=== PATIENT | female | born 1980 | race Caucasian/White ===

== ENCOUNTER 2017-04-14 16:33 | Inpatient (IN) | payer SELFPAY ==
[2017-04-14] MEDS ORDERED: ACETAMINOPHEN 325 MG TABLET PO ONE (18:08)
--- NOTE | 2017-04-14 18:11 | ER Document Report ---
ED Medical Screen (RME) - General Chief Complaint: Flu Symptoms Stated Complaint: WEALMESS. BACK/SIDE PAIN Time Seen by Provider: 04/14/17 18:07 Information source: Patient Notes: 36-year-old female with the onset yesterday runny nose, congestion, sore throat , cough, fever, body aches, without vomiting or diarrhea. She denies any dysuria, chest pain, headache or neck stiffness. TRAVEL OUTSIDE OF THE [place] IN LAST 30 DAYS: No - Related Data Allergies/Adverse Reactions: amoxicillin Allergy (Verified 04/14/17 16:36) Past Medical History - Social History Chew tobacco use (# tins/day): No Frequency of alcohol use: None Drug Abuse: None - Past Medical History Cardiac Medical History: Denies: Hx Coronary Artery Disease, Hx Hypertension Pulmonary Medical History: Denies: Hx Asthma Endocrine Medical History: Denies: Hx Diabetes Mellitus Type 1, Hx Diabetes Mellitus Type 2 Renal/ Medical History: Denies: Hx Peritoneal Dialysis Past Surgical History: Reports: Hx Tubal Ligation - Immunizations Immunizations up to date: Yes Hx Diphtheria, Pertussis, Tetanus Vaccination: No Physical Exam - Vital signs Vitals: Temp Pulse Resp BP Pulse Ox 103.1 F H 116 H 20 105/63 97 04/14/17 16:47 04/14/17 16:47 04/14/17 16:47 04/14/17 16:47 04/14/17 16:47 Course - Vital Signs Vital signs: Temp Pulse Resp BP Pulse Ox 103.1 F H 116 H 20 105/63 97 04/14/17 16:47 04/14/17 16:47 04/14/17 16:47 04/14/17 16:47 04/14/17 16:47
[2017-04-14] MEDS ORDERED: ONDANSETRON 4 MG TAB.RAPDIS PO ONE (18:12)
[2017-04-14 18:51] LABS: A TYPE INFLUENZA AG NEGATIVE (NEGATIVE); B INFLUENZA AG NEGATIVE (NEGATIVE)
[2017-04-14] MEDS ORDERED: NORMAL SALINE 1000 ML 1,000 ML IV ONE (19:26)
--- NOTE | 2017-04-14 20:48 | RADIOLOGY REPORT (SQ) ---
EXAM DESCRIPTION: CHEST PA/LAT COMPLETED DATE/TIME: 04/14/2017 8:29 pm REASON FOR STUDY: cough and fever COMPARISON: 10/21/2014 EXAM PARAMETERS: NUMBER OF VIEWS: two views TECHNIQUE: Digital Frontal and Lateral radiographic views of the chest acquired. RADIATION DOSE: NA LIMITATIONS: none FINDINGS: LUNGS AND PLEURA: No opacities, masses or pneumothorax. No pleural effusion. MEDIASTINUM AND HILAR STRUCTURES: No masses or contour abnormalities. HEART AND VASCULAR STRUCTURES: Heart normal size. No evidence for failure. BONES: No acute findings. HARDWARE: None in the chest. OTHER: No other significant finding. IMPRESSION: NO SIGNIFICANT RADIOGRAPHIC FINDING IN THE CHEST. TECHNICAL DOCUMENTATION: JOB ID: [id number] [employer]- All Rights Reserved
[2017-04-14 21:12] LABS: ABSOLUTE LYMPHOCYTES (AUTO) 0.9 10^3/uL (0.5-4.7); ABSOLUTE MONOCYTES (AUTO) 0.4 10^3/uL (0.1-1.4); ABSOLUTE NEUT (AUTO) 4.8 10^3/uL (1.7-8.2); BASOPHILS % (AUTO) 0.2 % (0-2); HEMATOCRIT 36.5 % (36.0-47.0); HEMOGLOBIN 12.2 g/dL (12.0-15.5); MEAN CORPUSCULAR HEMOGLOBIN 29.3 pg (27.0-33.4); MEAN CORPUSCULAR HGB CONC 33.6 g/dL (32.0-36.0); MEAN CORPUSCULAR VOLUME 87 fl (80-97); MONOCYTES % (AUTO) 7.3 % (3-13); PLATELET COUNT 230 10^3/uL (150-450); RED BLOOD COUNT 4.18 10^6/uL (3.72-5.28); RED CELL DISTRIBUTION WIDTH 13.3 % (11.5-14.0); SEGMENTED NEUTROPHILS % (AUTO) 78.5 % (42-78); TOTAL CELLS COUNTED % (AUTO) 100 %; WHITE BLOOD COUNT 6.1 10^3/uL (4.0-10.5)
--- NOTE | 2017-04-14 21:18 | ER Document Report ---
ED General - General Mode of Arrival: Ambulatory Information source: Patient TRAVEL OUTSIDE OF THE [place] IN LAST 30 DAYS: No - HPI Patient complains to provider of: Weakness and flu like symptoms Associated symptoms: Other - see notes above <PAXTON LIZAMA - Last Filed: 04/14/17 23:31> <GERARDOCARLOS ANN - Last Filed: 04/15/17 01:02> - General Chief Complaint: Flu Symptoms Stated Complaint: WEAKNESS. BACK/SIDE PAIN Time Seen by Provider: 04/14/17 18:07 Notes: 36 year old female with no known medical history presents to the ED complaining of weakness and flu like symptoms. Patient complains of fever, cough, congestion , sore throat, and right flank pain. Patient denies dysuria or shortness of breath. Patient reports that her back pain started after her flu like symptoms. (PAXTON LIZAMA) - Related Data Allergies/Adverse Reactions: amoxicillin Allergy (Verified 04/14/17 16:36) Past Medical History - General Information source: Patient - Social History Smoking Status: Former Smoker Chew tobacco use (# tins/day): No Frequency of alcohol use: None Drug Abuse: None Family History: None, Reviewed & Not Pertinent Patient has suicidal ideation: No Patient has homicidal ideation: No - Past Medical History Cardiac Medical History: Denies: Hx Coronary Artery Disease, Hx Hypertension Pulmonary Medical History: Denies: Hx Asthma Endocrine Medical History: Denies: Hx Diabetes Mellitus Type 1, Hx Diabetes Mellitus Type 2 Renal/ Medical History: Denies: Hx Peritoneal Dialysis Past Surgical History: Reports: Hx Tubal Ligation - Immunizations Immunizations up to date: Yes Hx Diphtheria, Pertussis, Tetanus Vaccination: No <PAXTON LIZAMA - Last Filed: 04/14/17 23:31> Review of Systems - Review of Systems Constitutional: See HPI, Fever EENT: No symptoms reported, Nose congestion, Throat pain Cardiovascular: No symptoms reported Respiratory: See HPI, Cough. denies: Short of breath Gastrointestinal: No symptoms reported Genitourinary: See HPI, Flank pain - right. denies: Burning, Dysuria Female Genitourinary: No symptoms reported Musculoskeletal: No symptoms reported Skin: No symptoms reported Hematologic/Lymphatic: No symptoms reported Neurological/Psychological: No symptoms reported -: Yes All other systems reviewed and negative <PAXTON LIZAMA - Last Filed: 04/14/17 23:31> Physical Exam - Vital signs Interpretation: Hypotensive, Tachycardic, Febrile - General General appearance: Alert In distress: None - HEENT Head: Normocephalic, Atraumatic Eyes: Normal Extraocular movements intact: Yes Pupils: PERRL Nasal: Other - nasal congestion - Respiratory Respiratory status: No respiratory distress Breath sounds: Normal - Cardiovascular Rhythm: Regular, Tachycardia Heart sounds: Normal auscultation - Abdominal Inspection: Normal - Back Back: CVA tenderness - right. No: Normal - Extremities General upper extremity: Normal inspection, Normal ROM General lower extremity: Normal inspection, Normal ROM - Neurological Neuro grossly intact: Yes Cognition: Normal Orientation: AAOx4 [place] Coma Scale Eye Opening: Spontaneous [place] Coma Scale Verbal: Oriented [place] Coma Scale Motor: Obeys Commands [place] Coma Scale Total: 15 - Psychological Associated symptoms: Normal affect, Normal mood - Skin Skin Temperature: Warm Skin Moisture: Dry Skin Color: Normal <DLPAXTON - Last Filed: 04/14/17 23:31> - Vital signs Vitals: Temp Pulse Resp BP Pulse Ox 103.1 F H 116 H 20 105/63 97 04/14/17 16:47 04/14/17 16:47 04/14/17 16:47 04/14/17 16:47 04/14/17 16:47 Course - Laboratory Result Diagrams: 04/14/17 20:41 04/14/17 20:41 <LIZAMAPAXTON - Last Filed: 04/14/17 23:31> - Laboratory Result Diagrams: 04/14/17 20:41 04/14/17 20:41 - Diagnostic Test Radiology reviewed: Reports reviewed <CARLOS CARRILLO - Last Filed: 04/15/17 01:02> - Re-evaluation Re-evalutation: 04/14 Patient is a 28-year-old female who comes in with a fever of 103, tachycardia and hypotension. Flu swab was negative although patient does have upper respiratory symptoms. More concerning however is her flank pain, CVA tenderness , and bacteria in her urine. No acute findings on CT. Patient was given ceftriaxone. Discussed with the hospitalist service. Cultures have been sent. Patient is agreeable to this plan. (CARLOS CARRILLO) - Vital Signs Vital signs: Temp Pulse Resp BP Pulse Ox 99.2 F 98 20 100/56 L 96 04/14/17 23:11 04/14/17 23:11 04/14/17 16:47 04/14/17 23:11 04/14/17 23:11 - Laboratory Laboratory results interpreted by me: 04/14/17 04/14/17 04/14/17 20:41 20:41 21:45 Seg Neutrophils % 78.5 H Glucose 114 H Urine Blood LARGE H Critical Care Note - Critical Care Note Total time excluding time spent on procedures (mins): 35 - Fever, tachycardia, hypotension, evaluation of possible pyelonephritis, multiple re-evaluations, coordination of admission <CARLOS CARRILLO - Last Filed: 04/15/17 01:02> Discharge <PAXTON LIZAMA - Last Filed: 04/14/17 23:31> - Discharge Admitting Provider: [facility]ist [facility] Admitted: Telemetry <CARLOS CARRILLO - Last Filed: 04/15/17 01:02> - Discharge Clinical Impression: Pyelonephritis Condition: Stable Disposition: ADMITTED INPATIENT Scribe Attestation: 04/15/17 01:02 I personally performed the services described in the documentation, reviewed and edited the documentation which was dictated to the scribe in my presence, and it accurately records my words and actions. (CARLOS CARRILLO) Scribe Documentation - Scribe Written by Ninaibe:: Jon Rodriges, 04/14/2017 2210 acting as scribe for :: Gerardo <PAXTON LIZAMA - Last Filed: 04/14/17 23:31>
[2017-04-14 21:54] LABS: ANION GAP 14 (5-19); BLOOD UREA NITROGEN 16 mg/dL (7-20); CALCIUM 9.1 mg/dL (8.4-10.2); CARBON DIOXIDE 23 mmol/L (22-30); CHLORIDE 102 mmol/L (98-107); GLUCOSE 114 mg/dL (75-110); SODIUM 138.7 mmol/L (137-145)
[2017-04-14 22:12] LABS: AMORPHOUS SEDIMENT,URINE TRACE /HPF; APPEARANCE,URINE SLIGHTLY-CLOUDY; BILIRUBIN,URINE NEGATIVE (NEGATIVE); COLOR,URINE YELLOW; GLUCOSE, URINE NEGATIVE (NEGATIVE); KETONES,URINE NEGATIVE (NEGATIVE); LEUKOCYTE ESTERASE,URINE NEGATIVE (NEGATIVE); NITRITE,URINE NEGATIVE (NEGATIVE); PROTEIN,URINE NEGATIVE (NEGATIVE); URINE SPECIFIC GRAVITY 1.006; UROBILINOGEN,URINE NEGATIVE mg/dL (<2.0)
[2017-04-14] MEDS ORDERED: CEFTRIAXONE 1 GM/D5W RTU 1 GM/50 ML RTUPB IV ONE (22:14)
--- NOTE | 2017-04-15 00:07 | RADIOLOGY REPORT (SQ) ---
EXAM DESCRIPTION: CT ABDOMEN AND PELVIS WITHOUT CONTRAST CLINICAL HISTORY: Diffuse abdominal pain COMPARISON: None Available. TECHNIQUE: CT of the abdomen and pelvis without IV contrast. FINDINGS: Abdomen: The liver has normal size and density. No calcified gallstones. The spleen, pancreas, and adrenal glands are unremarkable. The kidneys have normal size and contour without evidence of hydronephrosis. No obstructing ureteral calculi. The aorta and IVC have normal caliber and position. No free intraperitoneal air. Hazy appearance of the left abdominal mesentery. The stomach and duodenum have normal course. Pelvis: Prior tubal ligation. Uterus is not enlarged. Urinary bladder is unremarkable. No free pelvic fluid or lymphadenopathy. No dilated loops of large or small bowel. Normal appendix. The visualized lung bases are clear. No destructive bone lesions identified. DLP: 558.4 mGy-cm IMPRESSION: 1. Hazy appearance of the left abdominal mesentery. This can be seen with nonspecific mesenteric inflammation. Most likely differential considerations in this patient include gastroenteritis or pancreatitis. Follow-up CT of the abdomen in 3-6 months to confirm resolution and exclude less likely causes of mesenteric inflammation. This exam was performed according to our departmental dose-optimization program, which includes automated exposure control, adjustment of the mA and/or kV according to patient size and/or use of iterative reconstruction technique.
[2017-04-15] MEDS ORDERED: NORMAL SALINE 1000 ML 1,000 ML IV ONE ×2 (00:08→03:41)
[2017-04-15] MEDS ORDERED: IBUPROFEN 800 MG TABLET PO ONE (00:13)
[2017-04-15 01:06] LABS: CREATINE KINASE 50 U/L (30-135); LIPASE 225.8 U/L (23-300)
[2017-04-15 01:11] LABS: URINE AMPHETAMINES SCREEN NEGATIVE; URINE BARBITURATES SCREEN NEGATIVE; URINE BENZODIAZEPINES SCREEN NEGATIVE; URINE COCAINE SCREEN NEGATIVE; URINE MARIJUANA (THC) SCREEN NEGATIVE; URINE METHADONE SCREEN NEGATIVE; URINE PHENCYCLIDINE SCREEN NEGATIVE
[2017-04-15] MEDS ORDERED: NORMAL SALINE 1000 ML 1,000 ML IV PRN (02:02)
[2017-04-15] MEDS ORDERED: ALBUTEROL SULFATE HFA (90 MCG/PUFF) 200 PUFF/8.5 GM MDI IH PRN (02:02)
[2017-04-15] MEDS ORDERED: ACETAMINOPHEN 325 MG TABLET PO PRN (02:02)
[2017-04-15] MEDS ORDERED: GUAIFENESIN SYRP 200 MG/10 ML UDC PO PRN (02:02)
[2017-04-15] MEDS ORDERED: CEFTRIAXONE 1 GM/D5W RTU 1 GM/50 ML RTUPB IV ONE (03:00)
[2017-04-15] MEDS ORDERED: AZITHROMYCIN 500 MG in DEXTROSE 5%-WATER 250 ML IV ONE (03:00)
[2017-04-15] MEDS ORDERED: INFLUENZA ADLT QUAD (36MOS+) 2017-18 VAC 0.5 ML SYR IM PRN (03:29)
[2017-04-15] MEDS ORDERED: AZITHROMYCIN INJ 500 MG VIAL IV ONE (03:45)
[2017-04-15] MEDS ORDERED: KETOROLAC TROMETHAMINE INJ/PF 30 MG/1 ML SDV IV PRN (03:50)
[2017-04-15] MEDS ORDERED: TRAMADOL HCL 50 MG TABLET PO PRN (03:51)
[2017-04-15] MEDS ORDERED: BISACODYL 5 MG TABEC PO ONE (03:56)
--- NOTE | 2017-04-15 03:59 | PDOC H&P ---
History of Present Illness Admission Date/PCP: 04/15/17 01:15 No PCP History of Present Illness: KARON CHOUDHARY is a 36 year old female with no past medical history who presents to the emergency department with complaints of flulike symptoms and weakness. Patient reports that several weeks ago she was diagnosed with a URI and [place] and given cough syrup to help her sleep. She reports she was given no antibiotics or steroids at that time. Since that time patient has continued to have a cough productive of a white clear sputum, fevers and chills and weakness. Patient also notes the onset of right-sided back and side pain over the last several days. She reports that she often has back pain though. She does complain of nausea but no vomiting. She does ache all over and complains of general myalgias. Patient complains of upper respiratory symptoms including fever, cough, congestion, sore throat. Patient is referred to the hospitalist service for fever. Past Medical History Medical History: None Cardiac Medical History: Denies: Coronary Artery Disease, Hypertension Pulmonary Medical History: Denies: Asthma Endocrine Medical History: Denies: Diabetes Mellitus Type 1, Diabetes Mellitus Type 2 Past Surgical History Past Surgical History: Reports: Tubal Ligation Social History Smoking Status: Former Smoker Frequency of Alcohol Use: None Hx Recreational Drug Use: No Hx Prescription Drug Abuse: No - Advance Directive Resuscitation Status: Full Code Surrogate healthcare decision maker:: maria luisa Hdz Family History Family History: DM, Hypertension Parental Family History Reviewed: Yes Children Family History Reviewed: Yes Sibling(s) Family History Reviewed.: Yes Medication/Allergy Home Medications: Promethazine HCl [Phenergan 25 mg Tablet] 25 mg PO Q6H PRN #15 tablet 04/24/13 Hydrocodone/Acetaminophen [[place] 5-325 Tablet] 1 each PO Q4 PRN #8 tablet Amoxicillin Trihydrate [Amoxil 875 mg Tablet] 1 tab PO BID #20 tablet 04/07/14 Ibuprofen 800 mg PO Q8HP PRN #30 tablet 04/07/14 Butalb/Acetaminophen/Caffeine [Fioricet 50-300-40 mg Capsule] 1 cap PO Q4 PRN # 30 cap 10/21/14 Ibuprofen [Motrin 600 mg Tablet] 600 mg PO Q6 PRN #60 tablet 10/21/14 Metoclopramide HCl [Reglan] 10 mg PO Q8 #30 tablet 10/21/14 Methocarbamol [Robaxin 750 mg Tablet] 750 mg PO ASDIR PRN #40 tablet 08/01/15 Oxycodone HCl/Acetaminophen [Percocet 5-325 mg Tablet] 1 - 2 tab PO ASDIR PRN # 25 tablet 01/16/16 Allergies/Adverse Reactions: amoxicillin Allergy (Verified 04/14/17 16:36) Review of Systems Constitutional: PRESENT: anorexia, chills, fatigue, fever(s). ABSENT: headache( s), weight gain, weight loss Eyes: ABSENT: visual disturbances Ears: ABSENT: hearing changes Cardiovascular: ABSENT: chest pain, dyspnea on exertion, edema, orthropnea, palpitations Respiratory: PRESENT: cough, sputum. ABSENT: hemoptysis Gastrointestinal: PRESENT: nausea. ABSENT: abdominal pain, constipation, diarrhea, hematemesis, hematochezia, melena, vomiting Genitourinary: ABSENT: difficulty urinating, dysuria, hematuria, nocturia Musculoskeletal: ABSENT: joint swelling Integumentary: ABSENT: rash, wounds Neurological: ABSENT: abnormal gait, abnormal speech, confusion, dizziness, focal weakness, syncope Psychiatric: ABSENT: anxiety, depression, homidical ideation, suicidal ideation Endocrine: ABSENT: cold intolerance, heat intolerance, polydipsia, polyuria Hematologic/Lymphatic: ABSENT: easy bleeding, easy bruising Physical Exam Vital Signs: Temp Pulse Resp BP Pulse Ox 99.2 F 98 20 100/56 L 96 04/14/17 23:11 04/14/17 23:11 04/14/17 16:47 04/14/17 23:11 04/14/17 23:11 General appearance: PRESENT: mild distress, obese, well-developed, well- nourished Head exam: PRESENT: atraumatic, normocephalic Eye exam: PRESENT: conjunctiva pink, EOMI, PERRLA. ABSENT: conjunctival injection, scleral icterus Ear exam: PRESENT: normal external ear exam Mouth exam: PRESENT: dry mucosa, tongue midline Neck exam: PRESENT: lymphadenopathy. ABSENT: JVD, thyromegaly, tracheal deviation Respiratory exam: PRESENT: clear to auscultation og, other - Egophony right upper lobe. ABSENT: rales, rhonchi, wheezes Cardiovascular exam: PRESENT: RRR, +S1, +S2. ABSENT: diastolic murmur, rubs, systolic murmur Pulses: PRESENT: normal dorsalis pedis pul Vascular exam: PRESENT: normal capillary refill GI/Abdominal exam: PRESENT: normal bowel sounds, soft. ABSENT: distended, guarding, mass, organolmegaly, rebound, tenderness Rectal exam: PRESENT: deferred Extremities exam: PRESENT: full ROM. ABSENT: calf tenderness, clubbing, pedal edema Neurological exam: PRESENT: alert, awake, oriented to person, oriented to place , oriented to time, oriented to situation, CN II-XII grossly intact. ABSENT: motor sensory deficit Psychiatric exam: PRESENT: appropriate affect, normal mood. ABSENT: homicidal ideation, suicidal ideation Skin exam: PRESENT: dry, intact, warm. ABSENT: cyanosis, rash Results Laboratory Results: 04/14/17 04/14/17 04/14/17 18:08 18:08 20:41 WBC 6.1 Hgb 12.2 Hct 36.5 Plt Count 230 Sodium Potassium Chloride Carbon Dioxide Anion Gap BUN Creatinine Glucose Calcium Creatine Kinase Lipase Urine Blood Urine WBC (Auto) Urine RBC (Auto) Urine Bacteria (Auto) Squamous Epi Cells Auto Amorphous Sediment Auto Urine Mucus (Auto) Urine Opiates Screen Influenza A (Rapid) NEGATIVE Influenza B (Rapid) NEGATIVE Group A Strep Rapid NEGATIVE 04/14/17 04/14/17 04/14/17 20:41 20:41 21:45 WBC Hgb Hct Plt Count Sodium 138.7 Potassium 4.0 Chloride 102 Carbon Dioxide 23 Anion Gap 14 BUN 16 Creatinine 0.64 Glucose 114 H Calcium 9.1 Creatine Kinase 50 Lipase 225.8 Urine Blood LARGE H Urine WBC (Auto) 1 Urine RBC (Auto) 3 Urine Bacteria (Auto) 2+ Squamous Epi Cells Auto 4 Amorphous Sediment Auto TRACE Urine Mucus (Auto) RARE Urine Opiates Screen Influenza A (Rapid) Influenza B (Rapid) Group A Strep Rapid 04/14/17 21:45 WBC Hgb Hct Plt Count Sodium Potassium Chloride Carbon Dioxide Anion Gap BUN Creatinine Glucose Calcium Creatine Kinase Lipase Urine Blood Urine WBC (Auto) Urine RBC (Auto) Urine Bacteria (Auto) Squamous Epi Cells Auto Amorphous Sediment Auto Urine Mucus (Auto) Urine Opiates Screen UNCONFIRMED POSITIVE Influenza A (Rapid) Influenza B (Rapid) Group A Strep Rapid Impressions: Chest X-Ray 04/14/17 19:26 IMPRESSION: NO SIGNIFICANT RADIOGRAPHIC FINDING IN THE CHEST. Limited or Localized CT 04/14/17 23:39 IMPRESSION: 1. Hazy appearance of the left abdominal mesentery. This can be seen with nonspecific mesenteric inflammation. Most likely differential considerations in this patient include gastroenteritis or pancreatitis. Follow-up CT of the abdomen in 3-6 months to confirm resolution and exclude less likely causes of mesenteric inflammation. This exam was performed according to our departmental dose-optimization program, which includes automated exposure control, adjustment of the mA and/or kV according to patient size and/or use of iterative reconstruction technique. Assessment & Plan - Diagnosis (1) Fever Qualifiers: Encounter type: initial encounter Is this a current diagnosis for this admission?: Yes Plan: Patient with fever of 103 on admission. Suspect pneumonia at this time due to patient's egophony and copious upper respiratory tract symptoms. Will repeat her chest x-ray after rehydration. Start patient empirically on Rocephin and azithromycin. (2) Pneumonia Qualifiers: Pneumonia type: due to unspecified organism Laterality: right Lung location: upper lobe of lung Qualified Code(s): J18.1 - Lobar pneumonia, unspecified organism Is this a current diagnosis for this admission?: Yes Plan: Place patient on Rocephin and azithromycin for community-acquired pneumonia Albuterol as needed Sputum culture Blood cultures (3) Constipation Qualifiers: Constipation type: unspecified constipation type Qualified Code(s): K59.00 - Constipation, unspecified Is this a current diagnosis for this admission?: Yes Plan: Patient had a mildly abnormal CAT scan which upon my own review does reveal a copious amount of stool. Will give Dulcolax and Colace. (4) UTI (urinary tract infection) Qualifiers: Urinary tract infection type: site unspecified Hematuria presence: without hematuria Qualified Code(s): N39.0 - Urinary tract infection, site not specified Is this a current diagnosis for this admission?: Yes Plan: Patient possibly has a UTI and ER physician was concerned for pyelonephritis. Patient's clinical picture does not seem to fit this diagnosis, but Rocephin will cover for both of these conditions. Obtain repeat UA. Patient's UA appeared to be contaminated by squamous epithelial cells. Pending culture. - Time Time Spent: 30 to 50 Minutes Medications reviewed and adjusted accordingly: Yes Anticipated discharge: Home - Inpatient Certification Based on my medical assessment, after consideration of the patient's comorbidities, presenting symptoms, or acuity I expect that the services needed warrant INPATIENT care.: Yes I certify that my determination is in accordance with my understanding of Medicare's requirements for reasonable and necessary INPATIENT services [42 CFR 412.3e].: Yes Medical Necessity: Need For IV Fluids, Need for IV Antibiotics Post Hospital Care: D/C Technologist Development Documentation
[2017-04-15 06:02] LABS: APPEARANCE,URINE SLIGHTLY-CLOUDY; BILIRUBIN,URINE NEGATIVE (NEGATIVE); COLOR,URINE YELLOW; GLUCOSE, URINE NEGATIVE (NEGATIVE); KETONES,URINE NEGATIVE (NEGATIVE); LEUKOCYTE ESTERASE,URINE NEGATIVE (NEGATIVE); NITRITE,URINE NEGATIVE (NEGATIVE); PROTEIN,URINE NEGATIVE (NEGATIVE); URINE SPECIFIC GRAVITY 1.008; UROBILINOGEN,URINE NEGATIVE mg/dL (<2.0)
[2017-04-15] MEDS: GUAIFENESIN 600 MG TABLET.SA PO SCH ×2 (10:13→21:46)
[2017-04-15] MEDS: ENOXAPARIN SODIUM INJ 40 MG/0.4 ML DISP.SYRIN SUBCUT SCH (10:13)
[2017-04-15] MEDS: CEFTRIAXONE 1 GM/D5W RTU 1 GM/50 ML RTUPB IV SCH (10:13)
[2017-04-15] MEDS: FAMOTIDINE 20 MG TABLET PO SCH ×2 (10:13→21:46)
[2017-04-15] MEDS: DOCUSATE SODIUM 100 MG CAPSULE PO SCH ×2 (10:13→19:28)
[2017-04-15] MEDS: AZITHROMYCIN 500 MG in DEXTROSE 5%-WATER 250 ML IV SCH (10:14)
--- NOTE | 2017-04-15 14:29 | PDOC PROGRESS REPORT ---
Subjective Progress Note for:: 04/15/17 Subjective:: The patient is a 36-year-old female admitted with fever. Her history started about 2 weeks ago with nonspecific symptoms. She has had an ongoing runny nose. She has had a cough. She has had muscle aches and pains. She was admitted with a presumptive diagnosis of pyelonephritis but does not appear to have clinical evidence of pyelonephritis. Also, she has coarse rales in the left upper lobe of the lung field posteriorly but no evidence of an infiltrate on radiograph. She states that she is feeling slightly better when compared to yesterday. Reason For Visit: PNEUMONIA, FEVER Physical Exam Vital Signs: Temp Pulse Resp BP Pulse Ox 98.3 F 70 18 99/56 L 99 04/15/17 11:31 04/15/17 11:31 04/15/17 11:31 04/15/17 11:31 04/15/17 14:17 Pulse Oximeter Continuous Start: 04/15/17 02: 02 Freq: RTQ4 Status: Active Document 04/15/17 14:17 CMI (Rec: 04/15/17 14:17 CMI [email or web address]) Pulse Oximetry Assessment Oxygen Saturation (92-100) 99 Oxygen Delivery Method Room Air Fraction of Inspired Oxygen (FIO2) 21 Equipment Usage Equipment in Use Continuous SpO2 Machine # 8 Intake & Output 04/14/17 04/15/17 04/16/17 06:59 06:59 06:59 Intake Total 2089 Output Total 500 Balance 1589 Weight 81.9 kg Additional comments: The patient is healthy appearing. She does not appear to be toxic or in distress. Her facial appearance is unremarkable. Her oropharynx is benign without any exudates or pustules. Her lungs are clear with the exception of the posterior lung rodriguez in the left upper lung zone. She has coarse rales in this area. Her cardiac exam is noted to be regular without murmurs, gallops or rubs. The abdomen is benign. The lower extremities do not demonstrate edema. The skin is warm, dry and intact without lesions or rashes. Results Laboratory Results: 04/15/17 05:20 Urine Color YELLOW Urine Appearance SLIGHTLY-CLOUDY Urine pH 6.0 Ur Specific [place] 1.008 Urine Protein NEGATIVE Urine Glucose (UA) NEGATIVE Urine Ketones NEGATIVE Urine Blood LARGE H Urine Nitrite NEGATIVE Ur Leukocyte Esterase NEGATIVE Urine WBC (Auto) 3 Urine RBC (Auto) 4 Impressions: Chest X-Ray 04/14/17 19:26 IMPRESSION: NO SIGNIFICANT RADIOGRAPHIC FINDING IN THE CHEST. Limited or Localized CT 04/14/17 23:39 IMPRESSION: 1. Hazy appearance of the left abdominal mesentery. This can be seen with nonspecific mesenteric inflammation. Most likely differential considerations in this patient include gastroenteritis or pancreatitis. Follow-up CT of the abdomen in 3-6 months to confirm resolution and exclude less likely causes of mesenteric inflammation. This exam was performed according to our departmental dose-optimization program, which includes automated exposure control, adjustment of the mA and/or kV according to patient size and/or use of iterative reconstruction technique. Assessment & Plan - Diagnosis (1) Constipation Qualifiers: Constipation type: unspecified constipation type Qualified Code(s): K59.00 - Constipation, unspecified Is this a current diagnosis for this admission?: Yes (2) Fever Qualifiers: Encounter type: initial encounter Is this a current diagnosis for this admission?: Yes (3) Pneumonia Qualifiers: Pneumonia type: due to unspecified organism Laterality: right Lung location: upper lobe of lung Qualified Code(s): J18.1 - Lobar pneumonia, unspecified organism Is this a current diagnosis for this admission?: Yes (5) UTI (urinary tract infection) Qualifiers: Urinary tract infection type: site unspecified Hematuria presence: without hematuria Qualified Code(s): N39.0 - Urinary tract infection, site not specified Is this a current diagnosis for this admission?: Yes - Time Time Spent with patient: 15-24 minutes - Inpatient Certification Medical Necessity: Need for IV Antibiotics, Risk of Complication if Not Cared For in Hospital - Plan Summary Plan Summary: Patient presents with a constellation of symptoms that are most suggestive of a viral illness. Her illness began 2 weeks ago. She did have rapid influenza testing which was negative. At this point time I think it is prudent to continue antibiotics for both community-acquired pneumonia and a UTI. There is been a question about mesenteric inflammation and pancreatitis. However, she does not have any clinical symptoms to suggest pancreatitis. She otherwise looks well. Hopefully, she will be able to eat and drink and we can discharge her in the next 24-48 hours.
[2017-04-16 04:51] LABS: ABSOLUTE EOSINOPHILS # (AUTO) 0.1 10^3/uL (0.0-0.6); ABSOLUTE LYMPHOCYTES (AUTO) 1.7 10^3/uL (0.5-4.7); ABSOLUTE MONOCYTES (AUTO) 0.5 10^3/uL (0.1-1.4); ABSOLUTE NEUT (AUTO) 2.9 10^3/uL (1.7-8.2); BASOPHILS % (AUTO) 0.3 % (0-2); EOSINOPHILS % (AUTO) 1.1 % (0-6); HEMATOCRIT 33.2 % (36.0-47.0); HEMOGLOBIN 11.1 g/dL (12.0-15.5); MEAN CORPUSCULAR HEMOGLOBIN 29.2 pg (27.0-33.4); MEAN CORPUSCULAR HGB CONC 33.4 g/dL (32.0-36.0); MEAN CORPUSCULAR VOLUME 88 fl (80-97); MONOCYTES % (AUTO) 8.8 % (3-13); PLATELET COUNT 197 10^3/uL (150-450); RED CELL DISTRIBUTION WIDTH 13.9 % (11.5-14.0); SEGMENTED NEUTROPHILS % (AUTO) 55.8 % (42-78); TOTAL CELLS COUNTED % (AUTO) 100 %; WHITE BLOOD COUNT 5.1 10^3/uL (4.0-10.5)
[2017-04-16 05:04] LABS: ANION GAP 9 (5-19); BLOOD UREA NITROGEN 7 mg/dL (7-20); CALCIUM 8.3 mg/dL (8.4-10.2); CARBON DIOXIDE 25 mmol/L (22-30); CHLORIDE 109 mmol/L (98-107); GLUCOSE 83 mg/dL (75-110); POTASSIUM 3.8 mmol/L (3.6-5.0); SODIUM 143.3 mmol/L (137-145)
[2017-04-16] MEDS: DOCUSATE SODIUM 100 MG CAPSULE PO SCH (09:19)
[2017-04-16] MEDS: AZITHROMYCIN 500 MG in DEXTROSE 5%-WATER 250 ML IV SCH (09:39)
[2017-04-16] MEDS: FAMOTIDINE 20 MG TABLET PO SCH (09:39)
[2017-04-16] MEDS: CEFTRIAXONE 1 GM/D5W RTU 1 GM/50 ML RTUPB IV SCH (09:39)
[2017-04-16] MEDS: ENOXAPARIN SODIUM INJ 40 MG/0.4 ML DISP.SYRIN SUBCUT SCH (09:39)
[2017-04-16] MEDS: GUAIFENESIN 600 MG TABLET.SA PO SCH (09:39)
--- NOTE | 2017-04-16 12:25 | PDOC DISCHARGE SUMMARY ---
General - Admit/Disc Date/PCP Admission Date/Primary Care Provider: 04/15/17 01:15 Discharge Date: 04/16/17 - Discharge Diagnosis (1) Constipation Is this a current diagnosis for this admission?: Yes (2) Fever Is this a current diagnosis for this admission?: Yes (3) Pneumonia Is this a current diagnosis for this admission?: No (4) Pyelonephritis Is this a current diagnosis for this admission?: No (5) UTI (urinary tract infection) Is this a current diagnosis for this admission?: No (6) Bronchitis Is this a current diagnosis for this admission?: Yes (7) Gastroenteritis Is this a current diagnosis for this admission?: Yes - Additional Information Resuscitation Status: Full Code Discharge Diet: Regular Discharge Activity: Activity As Tolerated, Balance Activity w/Rest Prescriptions: Azithromycin 250 mg PO DAILY #4 tablet Home Medications: Azithromycin 250 mg PO DAILY #4 tablet 04/16/17 History of Present Illness History of Present Illness: KARON CHOUDHARY is a 36 year old female with no past medical history who presents to the emergency department with complaints of flulike symptoms and weakness. Patient reports that several weeks ago she was diagnosed with a URI and [place] and given cough syrup to help her sleep. She reports she was given no antibiotics or steroids at that time. Since that time patient has continued to have a cough productive of a white clear sputum, fevers and chills and weakness. Patient also notes the onset of right-sided back and side pain over the last several days. She reports that she often has back pain though. She does complain of nausea but no vomiting. She does ache all over and complains of general myalgias. Patient complains of upper respiratory symptoms including fever, cough, congestion, sore throat. Patient is referred to the hospitalist service for fever. Hospital Course Hospital Course: The patient was in initially admitted with a presumptive diagnosis of pyelonephritis secondary to fever 103.1 and right-sided flank pain. However, her imaging studies and cultures are not indicative of pyelonephritis or a urinary tract infection. Due to abnormal findings on pulmonary exam the diagnosis of pneumonia was entertained, however, her chest x-ray is unremarkable and does not show an infiltrate. During this hospitalization she has not demonstrated evidence of leukocytosis. In addition, the patient has not had any additional fevers other than the temperature spike on admission. Therefore, it is most likely that the patient developed viral bronchitis with acute viral gastroenteritis. 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 Please note that the patient has an abnormal CT of the abdomen with left mesentery inflammation. She must have a follow-up CT scan in approximately 3-6 months. She has been told this. Currently, she does not have a medical provider but she was told that she must follow-up with a primary care physician who can order this exam for her. At this point time the patient is clinically stable. She is tolerating solid foods and will be discharged to complete a course of oral azithromycin. Physical Exam Vital Signs: Temp Pulse Resp BP Pulse Ox 98.9 F 72 16 99/56 L 100 04/16/17 11:46 04/16/17 11:46 04/16/17 11:46 04/16/17 11:46 04/16/17 11:46 Pulse Oximeter Continuous Start: 04/15/17 02: 02 Freq: RTQ4 Status: Complete Document 04/16/17 00:00 SFL (Rec: 04/16/17 01:37 SFL [email or web address]) Pulse Oximetry Assessment Equipment Usage Equipment Standby Continuous SpO2 Machine # 8 Intake & Output 04/15/17 04/16/17 04/17/17 06:59 06:59 06:59 Intake Total 2089 4718 320 Output Total 500 Balance 1589 4718 320 Weight 81.9 kg 81.9 kg Additional comments: The patient is an extremely pleasant and healthy-appearing 36-year-old female. Her cognition and mentation are completely normal. Her lungs today demonstrate a few crackles in the right upper lung field but these cleared easily with deep inspiration. Otherwise, she has no adventitious pulmonary sounds. Her cardiac exam is unremarkable. The abdomen is soft and flat. Bowel sounds are present. She does not have guarding or rebound noted and there are no hernias or masses present. Her lower extremities are without edema. The skin is warm, dry and intact without lesions or rashes. Results Laboratory Results: 04/16/17 04:08 04/16/17 04:28 04/16/17 04/16/17 04:08 04:28 WBC 5.1 RBC 3.80 Hgb 11.1 L Hct 33.2 L MCV 88 MCH 29.2 MCHC 33.4 RDW 13.9 Plt Count 197 Seg Neutrophils % 55.8 Lymphocytes % 34.0 Monocytes % 8.8 Eosinophils % 1.1 Basophils % 0.3 Absolute Neutrophils 2.9 Absolute Lymphocytes 1.7 Absolute Monocytes 0.5 Absolute Eosinophils 0.1 Absolute Basophils 0.0 Sodium 143.3 Potassium 3.8 Chloride 109 H Carbon Dioxide 25 Anion Gap 9 BUN 7 Creatinine 0.49 L Est GFR ( Amer) > 60 Est GFR (Non-Af Amer) > 60 Glucose 83 Calcium 8.3 L Impressions: Chest X-Ray 04/14/17 19:26 IMPRESSION: NO SIGNIFICANT RADIOGRAPHIC FINDING IN THE CHEST. Limited or Localized CT 04/14/17 23:39 IMPRESSION: 1. Hazy appearance of the left abdominal mesentery. This can be seen with nonspecific mesenteric inflammation. Most likely differential considerations in this patient include gastroenteritis or pancreatitis. Follow-up CT of the abdomen in 3-6 months to confirm resolution and exclude less likely causes of mesenteric inflammation. This exam was performed according to our departmental dose-optimization program, which includes automated exposure control, adjustment of the mA and/or kV according to patient size and/or use of iterative reconstruction technique. Plan Discharge Plan: 1. The patient will be discharged home today. 2. She will complete a 5 day course of oral azithromycin. 3. She will make a follow-up appointment with a primary care provider in the area 4. She will require a repeat CT scan of the abdomen in approximately 3-6 months. She has been informed and guarantees that she will follow through on this. Time Spent: Less than 30 Minutes
[2017-04-16 13:32] VITALS: BP 95/46
== END 2017-04-16 14:00 | disposition home or self-care (01) | DRG 392 ==
LOC: ER 16:33 → EH 04-15 01:15 → UNDOADMIN 04-15 01:15 → 4W 04-15 02:34
PROVIDERS: ADMIT Family Medicine; ATTEND Family Medicine
PROC: 3E0234Z Introduction of Serum, Toxoid and Vaccine into Muscle, Percutaneous Approach (ICD-10-PCS; principal; 2017-04-16)
DX: A08.4 Viral intestinal infection, unspecified (principal); J20.8 Acute bronchitis due to other specified organisms; D72.829 Elevated white blood cell count, unspecified; K59.00 Constipation, unspecified; Z98.51 Tubal ligation status; Z87.891 Personal history of nicotine dependence; Z88.0 Allergy status to penicillin; Z23 Encounter for immunization
CPT/HCPCS: 36415; 71020; 76380; 80048; 80307; 81001; 82550; 83690; 85025; 86308; 87040; 87070; 87086; 87804; 87880; 90686; 94762; 94799; 96361; 96365; 99291; J0456; J0696; J1650; J1885; J3490; J7030; J7060; S0119

== ENCOUNTER 2019-06-03 12:12 | Emergency (ER) | payer SELFPAY | END 2019-06-03 13:11 | disposition left against medical advice (07) | LOC: ER 12:12 | DX: Z53.21 Procedure and treatment not carried out due to patient leaving prior to being seen by health care provider (principal) ==

== ENCOUNTER 2019-06-04 10:18 | Emergency (ER) | payer SELFPAY ==
--- NOTE | 2019-06-04 11:07 | ER Document Report ---
ED Medical Screen (RME) - General Chief Complaint: Skin Problem Stated Complaint: HEAD/FACIAL RASH Time Seen by Provider: 06/04/19 11:05 Notes: 38 y/o female presents with facial rash to right upper part of forehead that has now spread to eyelid and right side of scalp. Pt states itchy, painful, and burning. Denies any visual changes. Pt did have chickenpox as child, denies any history of shingles. I have greeted and performed a rapid initial assessment of this patient. A comprehensive ED assessment and evaluation of the patient, analysis of test results and completion of the medical decision making process with be conducted by additional ED providers. TRAVEL OUTSIDE OF THE [place] IN LAST 30 DAYS: No - Related Data Allergies/Adverse Reactions: amoxicillin Allergy (Verified 06/04/19 11:00) Past Medical History - Past Medical History Cardiac Medical History: Denies: Hx Coronary Artery Disease, Hx Hypertension Pulmonary Medical History: Denies: Hx Asthma Endocrine Medical History: Denies: Hx Diabetes Mellitus Type 1, Hx Diabetes Mellitus Type 2 Renal/ Medical History: Denies: Hx Peritoneal Dialysis Past Surgical History: Reports: Hx Tubal Ligation - Immunizations Immunizations up to date: Yes Hx Diphtheria, Pertussis, Tetanus Vaccination: No Physical Exam - Vital signs Vitals: Temp Pulse Resp BP Pulse Ox 99.1 F 72 18 127/59 H 97 06/04/19 10:54 06/04/19 10:54 06/04/19 10:54 06/04/19 10:54 06/04/19 10:54 Course - Vital Signs Vital signs: Temp Pulse Resp BP Pulse Ox 99.1 F 72 18 127/59 H 97 06/04/19 10:54 06/04/19 10:54 06/04/19 10:54 06/04/19 10:54 06/04/19 10:54
[2019-06-04] MEDS ORDERED: VALACYCLOVIR HCL 500 MG TABLET PO ONE (13:32)
--- NOTE | 2019-06-04 13:34 | ER Document Report ---
HPI - HPI Time Seen by Provider: 06/04/19 13:20 Onset: Other - 5 d Onset/Duration: Worse Quality of pain: Burning Pain Level: 5 Context: Patient complains of painful pruritic rash to the right side of her face and scalp for the past 5 days. Patient denies any fever. Patient denies any change in vision. Patient states she has been attempting to treat with [id number] topical steroids. Associated Symptoms: Other - Skin rash, facial pain. denies: Fever Exacerbated by: Denies Relieved by: Denies Similar symptoms previously: No Recently seen / treated by doctor: No - ROS ROS below otherwise negative: Yes Systems Reviewed and Negative: Yes All other systems reviewed and negative - CONSTITUTIONAL Constitutional: DENIES: Fever, Chills - NEURO Neurology: DENIES: Vision blurred - REPRODUCTIVE Reproductive: DENIES: : - DERM Skin Color: Normal Skin Problems: Rash Past Medical History - General Information source: Patient - Social History Smoking Status: Unknown if Ever Smoked Chew tobacco use (# tins/day): No Frequency of alcohol use: None Drug Abuse: None Occupation: none Lives with: Family Family History: DM, Hypertension Patient has suicidal ideation: No Patient has homicidal ideation: No - Medical History Medical History: Negative Pulmonary Medical History: Denies: Hx Asthma Renal/ Medical History: Denies: Hx Peritoneal Dialysis Past Surgical History: Reports: Hx Tubal Ligation - Immunizations Immunizations up to date: Yes Hx Diphtheria, Pertussis, Tetanus Vaccination: No Vertical Provider Document - CONSTITUTIONAL Agree With Documented VS: Yes Exam Limitations: No Limitations General Appearance: WD/WN, No Apparent Distress - INFECTION CONTROL TRAVEL OUTSIDE OF THE [place] IN LAST 30 DAYS: No - HEENT HEENT: Atraumatic, Normocephalic Notes: Patient with crusted skin lesion to the right upper eyelid, right adventist area and right parietal scalp Extraocular movements intact, sclera clear, no corneal abrasion, foreign body, ulcer or dendrite. - NECK Neck: Normal Inspection, Supple. negative: Lymphadenopathy-Left, Lymphadenopathy-Right - RESPIRATORY Respiratory: Breath Sounds Normal, No Respiratory Distress - CARDIOVASCULAR Cardiovascular: Regular Rate, Regular Rhythm - MUSCULOSKELETAL/EXTREMETIES Musculoskeletal/Extremeties: MAEW - NEURO Level of Consciousness: Awake, Alert, Appropriate Motor/Sensory: No Motor Deficit - DERM Integumentary: Warm, Dry, Rash - Patient with erythematous, crusted tender skin lesions to right side of face, right parietal scalp and a single lesion to the right upper eyelid Course - Re-evaluation Re-evalutation: 06/04/19 14:12 Patient without any dendritic lesions noted to cornea. Patient without any reports of change in vision. Patient encouraged to follow-up with mechanical manufacturing technician for recheck. Good return precautions discussed with patient. Patient will be started on antiviral medication for likely herpes zoster at this time. - Vital Signs Vital signs: Temp Pulse Resp BP Pulse Ox 99.1 F 72 18 127/59 H 97 06/04/19 10:54 06/04/19 10:54 06/04/19 10:54 06/04/19 10:54 06/04/19 10:54 Discharge - Discharge Clinical Impression: Herpes zoster Qualifiers: Herpes zoster complications: without complications Qualified Code(s): B02.9 - Zoster without complications Condition: Stable Disposition: HOME, SELF-CARE Instructions: Acetaminophen, Oral Narcotic Medication ([facility]), Shingles ([facility]) Additional Instructions: Return immediately for any new or worsening symptoms: Any change in vision, concerning or new symptoms Followup with your primary care provider, call tomorrow to make a followup appointment Follow-up with an mechanical manufacturing technician for recheck, call today to make a follow-up appointment Prescriptions: Naproxen [Naprosyn 250 Nmg Tablet] 1 tab PO BID #14 tablet Hydrocodone/Acetaminophen [[place] 5-325 mg Tablet] 1 tab PO Q6 PRN #15 tablet PRN Reason: Valacyclovir HCl [Valtrex] 1,000 mg PO TID #42 tablet Referrals: [facility] [Provider Group] - Follow up tomorrow [facility] [Provider Group] - Follow up as needed
[2019-06-04 14:35] VITALS: BP 121/72
== END 2019-06-04 14:35 | disposition home or self-care (01) ==
LOC: ER 10:18
DX: B02.9 Zoster without complications (principal)
CPT/HCPCS: 99282